=== PATIENT | female | born 1985 | race Caucasian/White ===

== ENCOUNTER → 2020-02-05 | Outpatient (CLI) | payer SELFPAY | LOC: M LABSMTC 16:12 | PROVIDERS: ATTEND Pediatrics | DX: Z20.828 Contact with and (suspected) exposure to other viral communicable diseases (principal) ==

== ENCOUNTER 2021-01-05 18:25 | Emergency (ER) | payer BC, OTHER ==
[~2021-01-05] VITALS: Ht 157.5 cm; Wt 86.4 kg
[2021-01-05 18:26] VITALS: BP 153/88
[2021-01-05] MEDS ORDERED: IBUP-1114 PO (18:54)
[2021-01-05] MEDS ORDERED: AUGMENTIN 875 MG TAB PO ONE (21:10)
[2021-01-05] MEDS ORDERED: AUGM875T28 PO (21:13)
--- OUTSIDE RECORDS SUMMARY | 2021-01-05 22:33 | CCD ---
Author Author [facility] Organization [facility] Address Unknown Phone Unavailable Care Team Providers Care Floor Installer Name Role Phone Maring, Johny PA Unavailable Unavailable Maring, Johny PA Unavailable Unavailable Maring, Johny PA Unavailable Unavailable Maring, Johny PA Unavailable Unavailable Maring, Johny PA Unavailable Unavailable Maring, Johny PA Unavailable Unavailable Maring, Johny PA Unavailable Unavailable Maring, Johny PA Unavailable Unavailable Maring, Johny PA Unavailable Unavailable Maring, Johny PA Unavailable Unavailable Maring, Johny PA Unavailable Unavailable Maring, Johny PA Unavailable Unavailable Maring, Johny PA Unavailable Unavailable Maring, Johny PA Unavailable Unavailable Maring, Johny PA Unavailable Unavailable Maring, Johny PA Unavailable Unavailable Re-disclosure Warning The records that you are about to access may contain information from federally-assisted alcohol or drug abuse programs. If such information is present, then the following federally mandated warning applies: This information has been disclosed to you from records protected by federal confidentiality rules (42 CFR part 2). The federal rules prohibit you from making any further disclosure of this information unless further disclosure is expressly permitted by the written consent of the person to whom it pertains or as otherwise permitted by 42 CFR part 2. A general authorization for the release of medical or other information is NOT sufficient for this purpose. The Federal rules restrict any use of the information to criminally investigate or prosecute any alcohol or drug abuse patient.The records that you are about to access may contain highly sensitive health information, the redisclosure of which is protected by Article 27-F of the [place] Public Health law. If you continue you may have access to information: Regarding HIV / AIDS; Provided by facilities licensed or operated by the [facility] Office of Mental Health; or Provided by the [facility] Office for People With Developmental Disabilities. If such information is present, then the following [facility] mandated warning applies: This information has been disclosed to you from confidential records which are protected by state law. State law prohibits you from making any further disclosure of this information without the specific written consent of the person to whom it pertains, or as otherwise permitted by law. Any unauthorized further disclosure in violation of state law may result in a fine or usp sentence or both. A general authorization for the release of medical or other information is NOT sufficient authorization for further disc losure. Encounters Encounter Providers Location Date Indications Data Source(s ) Outpatient Attender: Johny KIM 04/04/19 10:10:39 AM EST - 04/04/2020 12:03:45 PM EST DocuTap ([facility] ) Immunizations Vaccine Date Status Description Data Source(s) COVID-19 VACCINE Pfizer 12/18/2020 12:00:00 AM EDT completed [facility] Vaccine Series Complete: YESThis Data wa s Submitted to [facility] Via [employer]. COVID-19 VACCINE Pfizer 03/12/2020 12:00:00 AM EST completed [place] Vaccine Series Complete: YESThis Data wa s Submitted to [facility] Via [employer]. COVID-19 VACCINE Pfizer 02/20/2020 12:00:00 AM EST completed [facility] Vaccine Series Complete: NOThis Data was Submitted to [facility] Via [employer]. Medications No Information Insurance Providers Payer name Policy type / Coverage type Policy ID Covered constitution party ID Covered constitution party's relationship to lam Policy Lam Plan Information [facility] Preferred Provider Org. [id number] Self [id number] SELF PAY [facility] MED emp [id number] Employee [id number] [facility] [id number] SP [id number] DO NOT USE [id number] [facility] [id number] SELF PAY ONLY [id number] SP [id number] Problems, Conditions, and Diagnoses No Information Surgeries/Procedures No Information Results ID Date Data Source [id number] 02/05/2020 03:10:00 PM EST [facility] Name Value Range Interpretation Code Description Data Yana rce(s) Supporting Document(s) [facility] by [facility] and reported by [facility]. Procedure Social History No Information
--- OUTSIDE RECORDS SUMMARY | 2021-01-05 22:52 | CCD ---
Author Author [facility] Organization [facility] Address Unknown Phone Unavailable Care Team Providers Care Child Care Name Role Phone Maring, Johny PA Unavailable [...] is protected by Article 27-F of the [place] State Public Health law. If you continue you may have access to information: Regarding HIV / AIDS; Provided by facilities licensed or operated by the [facility] Office of Mental Health; or Provided by the [facility] Office for People With Developmental Disabilities. If such information is present, then the following [facility] mandated warning applies: This information has been [...] law may result in a fine or mcc sentence or both. A general authorization for the release of medical or other information is NOT sufficient authorization for further disc losure. Encounters Encounter Providers Location Date Indications Data Source(s ) Outpatient Attender: Johny KIM 04/04/19 10:10:39 AM EST - 04/04/2020 12:03:45 PM EST DocuTap ([facility] ) Immunizations Vaccine Date Status Description Data Source(s) COVID-19 VACCINE Pfizer 12/18/2020 12:00:00 AM EDT completed [place] Vaccine Series Complete: YESThis Data wa s Submitted to [facility] Via [employer]. COVID-19 VACCINE Pfizer 03/12/2020 12:00:00 AM EST completed [place] Vaccine Series Complete: YESThis Data wa s Submitted to [facility] Via [employer]. COVID-19 VACCINE Pfizer 02/20/2020 12:00:00 AM EST completed [place] Vaccine Series Complete: NOThis Data was Submitted to [facility] Via [employer]. Medications No Information Insurance Providers Payer name Policy type / Coverage type Policy ID Covered democrat ID Covered democrat's relationship to lam Policy Lam Plan Information [facility] Preferred Provider Org. [id number] Self [id number] SELF PAY [facility] MED emp [id number] Employee [id number] [facility] [id number] SP [id number] DO NOT USE [id number] [facility] [id number] SELF PAY ONLY [id number] SP [id number] Problems, Conditions, and Diagnoses No Information Surgeries/Procedures No Information Results ID Date Data Source [id number] 02/05/2020 03:10:00 PM EST [facility] Name Value Range Interpretation Code Description Data Yana rce(s) Supporting Document(s) SARS coronavirus 2 [facility] This lab was ordered by [facility] and reported by [facility]. Procedure Social History No Information
== END 2021-01-05 21:27 | disposition home or self-care (01) ==
LOC: M ED 18:25
DX: S81.831A Puncture wound without foreign body, right lower leg, initial encounter (principal); W55.01XA Bitten by cat, initial encounter; Y92.410 Unspecified street and highway as the place of occurrence of the external cause

== ENCOUNTER 2021-01-06 10:19 | Emergency (ER) | payer BC, OTHER ==
[~2021-01-06] VITALS: Ht 157.5 cm; Wt 86.4 kg
[~2021-01-06 10:19] MED LIST: AUGM875T28 PO; IBUP-1114 PO
--- OUTSIDE RECORDS SUMMARY | 2021-01-06 10:24 | CCD ---
Author Author [facility] Organization [facility] Address Unknown Phone Unavailable Care Team Providers Care Project Engineer Name Role Phone Maring, Johny PA Unavailable [...] by facilities licensed or operated by the [facility] Office of Mental Health; or Provided by the [facility] Office for People With Developmental Disabilities. If such information is present, then the following [facility] mandated warning applies: This information has been [...] law may result in a fine or chcf sentence or both. A general authorization for the release of medical or other information is NOT sufficient authorization for further disc losure. Encounters Encounter Providers Location Date Indications Data Source(s ) Outpatient Attender: Johny KIM 04/04/19 10:10:39 AM EST - 04/04/2020 12:03:45 PM EST DocuTap ([facility] ) Immunizations Vaccine Date Status Description Data Source(s) COVID-19 VACCINE Pfizer 12/18/2020 12:00:00 AM EDT completed [place] Vaccine Series Complete: YESThis Data wa s Submitted to [facility] Via [employer]. COVID-19 VACCINE Pfizer 03/12/2020 12:00:00 AM EST completed [place] Vaccine Series Complete: YESThis Data wa s Submitted to [facility] Via [employer]. COVID-19 VACCINE Pfizer 02/20/2020 12:00:00 AM EST completed [place] Vaccine Series Complete: NOThis Data was Submitted to [facility] Via [employer]. Medications No Information Insurance Providers Payer name Policy type / Coverage type Policy ID Covered libertarian ID Covered libertarian's relationship to lam Policy Lam Plan Information [facility] Preferred Provider Org. [id number] Self [id number] SELF PAY [facility] MED emp [id number] Employee [id number] [facility] [id number] SP [id number] DO NOT USE [id number] [facility] [id number] SELF PAY ONLY [id number] SP [id number] Problems, Conditions, and Diagnoses No Information Surgeries/Procedures No Information Results ID Date Data Source [id number] 02/05/2020 03:10:00 PM EST [facility] Name Value Range Interpretation Code Description Data Yana rce(s) Supporting Document(s) SARS coronavirus 2 [facility] This lab was ordered by [facility] and reported by [facility]. Procedure Social History No Information
--- OUTSIDE RECORDS SUMMARY | 2021-01-06 11:36 | CCD ---
Author Author [facility] Organization [facility] Address Unknown Phone Unavailable Care Team Providers Care Vice President Of Contracts Name Role Phone Maring, Johny PA Unavailable [...] is protected by Article 27-F of the [place] State Public Health law. If you continue you may have access to information: Regarding HIV / AIDS; Provided by facilities licensed or operated by the [facility] Office of Mental Health; or Provided by the [facility] Office for People With Developmental Disabilities. If such information is present, then the following [facility] mandated warning applies: This information has been [...] law may result in a fine or intermediate sentence or both. A general authorization for the release of medical or other information is NOT sufficient authorization for further disc losure. Encounters Encounter Providers Location Date Indications Data Source(s ) Outpatient Attender: Johny KIM 04/04/19 10:10:39 AM EST - 04/04/2020 12:03:45 PM EST DocuTap ([facility] ) Immunizations Vaccine Date Status Description Data Source(s) COVID-19 VACCINE Pfizer 12/18/2020 12:00:00 AM EDT completed [place]IS Vaccine Series Complete: YESThis Data wa s Submitted to [facility] Via [email or web address]. COVID-19 VACCINE Pfizer 03/12/2020 12:00:00 AM EST completed [place] Vaccine Series Complete: YESThis Data wa s Submitted to [facility] Via [email or web address]. COVID-19 VACCINE Pfizer 02/20/2020 12:00:00 AM EST completed [place] Vaccine Series Complete: NOThis Data was Submitted to [facility] Via [email or web address]. Medications No Information Insurance Providers Payer name Policy type / Coverage type Policy ID Covered constitution party ID Covered constitution party's relationship to lam Policy Lam Plan Information [facility] Preferred Provider Org. [id number] Self [id number] SELF PAY [facility] MED emp [id number] Employee [id number] [facility] [id number] SP [id number] DO NOT USE [id number] [facility] [id number] SELF PAY ONLY [id number] SP [id number] Problems, Conditions, and Diagnoses No Information Surgeries/Procedures No Information Results ID Date Data Source [id number] 02/05/2020 03:10:00 PM EST [facility] Name Value Range Interpretation Code Description Data Yana rce(s) Supporting Document(s) SARS coronavirus [facility] This lab was ordered by [facility] and reported by [facility]. Procedure Social History No Information
[2021-01-06] MEDS ORDERED: RABIES IMMUNE GLOBULIN 1500 INTERNATIONAL UNIT/5ML VIAL (90375) IM ONE ×2 (11:45→12:25)
[2021-01-06] MEDS ORDERED: RABIES VACCINE HUMAN 2.5 INTERNATIONAL UNITS/ML VIAL (90675) IM ONE (11:45)
[2021-01-06] MEDS ORDERED: RABIES IMMUNE GLOBULIN 300 INTERNATIONAL UNITS/1ML VIAL (90375) IM ONE (12:25)
[2021-01-06 13:38] VITALS: BP 129/89
== END 2021-01-06 13:41 | disposition home or self-care (01) ==
LOC: M ED 10:19
DX: Z20.3 Contact with and (suspected) exposure to rabies (principal); Z23 Encounter for immunization; S81.831A Puncture wound without foreign body, right lower leg, initial encounter; W55.01XA Bitten by cat, initial encounter; Y92.89 Other specified places as the place of occurrence of the external cause

== ENCOUNTER 2021-01-09 07:45 | Emergency (ER) | payer BC, OTHER ==
[~2021-01-09] VITALS: Ht 157.5 cm; Wt 95.3 kg
--- OUTSIDE RECORDS SUMMARY | 2021-01-09 07:49 | CCD ---
Author Author [facility] Organization [facility] Address Unknown Phone Unavailable Care Team Providers Care Team Manager Name Role Phone Maring, Johny PA Unavailable [...] is protected by Article 27-F of the [place] State Public Health law. If you continue you may have access to information: Regarding HIV / AIDS; Provided by facilities licensed or operated by the [facility] of Mental Health; or Provided by the [facility] Office for People With Developmental Disabilities. If such information is present, then the following [facility] mandated warning applies: This information has been [...] law may result in a fine or penitentiary sentence or both. A general authorization for the release of medical or other information is NOT sufficient authorization for further disc losure. Encounters Encounter Providers Location Date Indications Data Source(s ) Outpatient Attender: Johny KIM 04/04/19 10:10:39 AM EST - 04/04/2020 12:03:45 PM EST DocuTa ([facility] ) Immunizations Vaccine Date Status Description Data Source(s) COVID-19 VACCINE Pfizer 12/18/2020 12:00:00 AM EDT completed [place]IS Vaccine Series Complete: YESThis Data wa s Submitted to [facility] Via [employer]. COVID-19 VACCINE Pfizer 03/12/2020 12:00:00 AM EST completed [place] Vaccine Series Complete: YESThis Data wa s Submitted to [facility] Via [employer]. COVID-19 VACCINE Pfizer 02/20/2020 12:00:00 AM EST completed [place] Vaccine Series Complete: NOThis Data was Submitted to [facility] Via [employer]. Medications No Information Insurance Providers Payer name Policy type / Coverage type Policy ID Covered constitution party ID Covered constitution party's relationship to lam Policy Lam Plan Information [facility] Provider Org. [id number] Self [id number] SELF PAY [facility] emp [id number] Employee [id number] [employer] [place] P[employer] 302/307 [id number] SP [id number] [employer] DIV [id number] SP [id number] DO NOT USE [id number] [facility] [id number] [employer] [place] PPO 302/307 [id number] SP [id number] SELF PAY ONLY [id number] SP [id number] [facility] [id number] Problems, Conditions, and Diagnoses No Information Surgeries/Procedures No Information Results ID Date Data Source [id number] 02/05/2020 03:10:00 PM EST [place] Name Value Range Interpretation Code Description Data Yana rce(s) Supporting Document(s) SARS coronavirus 2 RNA [facility] This lab was ordered by [facility] and reported by [facility]. Procedure Social History No Information
[2021-01-09] MEDS ORDERED: RABIES VACCINE HUMAN 2.5 INTERNATIONAL UNITS/ML VIAL (90675) IM ONE (08:30)
--- OUTSIDE RECORDS SUMMARY | 2021-01-09 09:29 | CCD ---
Author Author [facility] Organization [facility] Address Unknown Phone Unavailable Care Team Providers Care Steam Fitter Name Role Phone Maring, Johny PA Unavailable Unavailable Maring, Johny PA Unavailable Unavailable Maring, Johny PA Unavailable Unavailable Maring, Johny PA Unavailable Unavailable Maring, Johny PA Unavailable Unavailable Maring, Johny PA Unavailable Unavailable Maring, Johny PA Unavailable Unavailable Maring, Johny PA Unavailable Unavailable Maring, Johny PA Unavailable Unavailable Maring, Jhony PA Unavailable Unavailable Maring, Johny PA Unavailable [...] is protected by Article 27-F of the [place] State Public Health law. If you continue you may have access to information: Regarding HIV / AIDS; Provided by facilities licensed or operated by the [facility] Office of Mental Health; or Provided by the [facility] Office for People With Developmental Disabilities. If such information is present, then the following [facility] mandated warning applies: This information [...] EST - 04/04/2020 12:03:45 PM EST DocuTa ([facility] ) Immunizations Vaccine Date Status Description Data Source(s) COVID-19 VACCINE Pfizer 12/18/2020 12:00:00 AM EDT completed [place] Vaccine Series Complete: YESThis Data wa s Submitted to [facility] Via [employer]. COVID-19 VACCINE Pfizer 03/12/2020 12:00:00 AM EST completed [place] Vaccine Series Complete: YESThis Data wa s Submitted to [facility] Via [employer]. COVID-19 VACCINE Pfizer 02/20/2020 12:00:00 AM EST completed [place] Vaccine Series Complete: NOThis Data was Submitted to [facility] Via [employer]. Medications No Information Insurance Providers Payer name Policy type / Coverage type Policy ID Covered democrat ID Covered democrat's relationship to lam Policy Lam Plan Information [facility] Provider Org. [id number] Self [id number] SELF PAY [facility] emp [id number] Employee [id number] [employer] [place] PPO 302/307 [id number] SP [id number] [employer] DIV [id number] SP [id number] DO NOT USE [id number] [facility] [id number] [employer] [place] PPO 302/307 [id number] SP [id number] SELF PAY ONLY [id number] SP [id number] [facility] [id number] Problems, Conditions, and Diagnoses No Information Surgeries/Procedures No Information Results ID Date Data Source [id number] 02/05/2020 03:10:00 PM EST [facility] Name Value Range Interpretation Code Description Data Yana rce(s) Supporting Document(s) SARS coronavirus 2 RNA [facility] This lab was ordered by [facility] and reported by [facility]. Procedure Social History No Information
[2021-01-09 09:34] VITALS: BP 125/83
== END 2021-01-09 09:36 | disposition home or self-care (01) ==
LOC: M ED 07:45
DX: Z23 Encounter for immunization (principal); Z20.3 Contact with and (suspected) exposure to rabies; S81.851D Open bite, right lower leg, subsequent encounter; W55.01XD Bitten by cat, subsequent encounter; Y92.9 Unspecified place or not applicable; Y93.9 Activity, unspecified; Y99.9 Unspecified external cause status

== ENCOUNTER 2021-01-13 06:01 | Emergency (ER) | payer BC, OTHER ==
[~2021-01-13] VITALS: Ht 157.5 cm; Wt 98.0 kg
[2021-01-13 06:02] VITALS: BP 134/85
--- OUTSIDE RECORDS SUMMARY | 2021-01-13 06:11 | CCD ---
Author Author [facility] Organization [facility] Address Unknown Phone Unavailable Care Team Providers Care Rug Touch Up Painter Name Role Phone Maring, Johny PA Unavailable [...] is protected by Article 27-F of the [place] State Public Health law. If you continue you may have access to information: Regarding HIV / AIDS; Provided by facilities licensed or operated by the [facility] Office of Mental Health; or Provided by the [facility] Office for People With Developmental Disabilities. If such information is present, then the following [facility] mandated warning applies: This information has [...] law may result in a fine or half-way sentence or both. A general authorization for the release of medical or other information is NOT sufficient authorization for further disc losure. Encounters Encounter Providers Location Date Indications Data Source(s ) Outpatient Attender: Johny KIM 04/04/19 10:10:39 AM EST - 04/04/2020 12:03:45 PM EST DocuTa ([facility] ) Immunizations Vaccine Date Status Description Data Source(s) COVID-19 VACCINE Pfizer 12/18/2020 12:00:00 AM EDT completed [place] Vaccine Series Complete: YESThis Data wa s Submitted to [facility] Via [employer]. COVID-19 VACCINE Pfizer 03/12/2020 12:00:00 AM EST completed [place] Vaccine Series Complete: YESThis Data wa s Submitted to [facility] Via [employer]. COVID-19 VACCINE Pfizer 02/20/2020 12:00:00 AM EST completed [place] Vaccine Series Complete: NOThis Data was Submitted to [facility] Via [employer]. Medications No Information Insurance Providers Payer name Policy type / Coverage type Policy ID Covered constitution party ID Covered constitution party's relationship to lam Policy Lam Plan Information [facility] Provider Org. [id number] Self [id number] SELF PAY [facility] emp [id number] Employee [id number] [employer] [place] PPO 302/307 [id number] SP [id number] [employer] DIV [id number] SP [id number] DO NOT USE [id number] [facility] [id number] [employer] [place] PPO 302/307 [id number] SP [id number] SELF PAY ONLY [id number] SP [id number] [facility] [id number] Problems, Conditions, and Diagnoses No Information Surgeries/Procedures No Information Results ID Date Data Source [id number] 02/05/2020 03:10:00 PM EST [facility] Name Value Range Interpretation Code Description Data Yana rce(s) Supporting Document(s) SARS coronavirus 2 RNA [facility] This lab was ordered by [facility] and reported by [facility]. Procedure Social History No Information
--- OUTSIDE RECORDS SUMMARY | 2021-01-13 07:50 | CCD ---
Author Author [facility] Organization [facility] Address Unknown Phone Unavailable Care Team Providers Care Broomcorn Scraper Name Role Phone Maring, Johny PA Unavailable [...] by facilities licensed or operated by the [facility] Office of Mental Health; or Provided by the [facility] Office for People With Developmental Disabilities. If such information is present, then the following [facility] mandated warning applies: This information has [...] law may result in a fine or residential sentence or both. A general authorization for the release of medical or other information is NOT sufficient authorization for further disc losure. Encounters Encounter Providers Location Date Indications Data Source(s ) Outpatient Attender: Johny KIM 04/04/19 10:10:39 AM EST - 04/04/2020 12:03:45 PM EST DocuTa ([facility] ) Immunizations Vaccine Date Status Description Data Source(s) COVID-19 VACCINE Pfizer 12/18/2020 12:00:00 AM EDT completed [facility] Vaccine Series Complete: YESThis Data wa s Submitted to [facility] Via [employer]. COVID-19 VACCINE Pfizer 03/12/2020 12:00:00 AM EST completed [facility] Vaccine Series Complete: YESThis Data wa s Submitted to [facility] Via [employer]. COVID-19 VACCINE Pfizer 02/20/2020 12:00:00 AM EST completed [facility] Vaccine Series Complete: NOThis Data was Submitted to [facility] Via [employer]. Medications No Information Insurance Providers Payer name Policy type / Coverage type Policy ID Covered republican ID Covered republican's relationship to lam Policy Lam Plan Information [facility] Provider Org. [id number] Self [id number] SELF PAY [facility] emp [id number] Employee [id number] [employer] [place] 302/307 [id number] SP [id number] [employer] DIV [id number] SP [id number] DO NOT USE [id number] [facility] [id number] [employer] [place] P[place] 302/[id number] SP [id number] SELF PAY ONLY [id number] SP [id number] [facility] [id number] 18 [id number] Problems, Conditions, and Diagnoses No Information Surgeries/Procedures No Information Results ID Date Data Source [id number] 02/05/2020 03:10:00 PM EST [facility] Name Value Range Interpretation Code Description Data Yana rce(s) Supporting Document(s) SARS coronavirus 2 RNA [facility] This lab was ordered by [facility] and reported by [facility]. Procedure Social History No Information
[2021-01-13] MEDS ORDERED: RABIES VACCINE HUMAN 2.5 INTERNATIONAL UNITS/ML VIAL (90675) IM ONE (08:05)
== END 2021-01-13 08:27 | disposition home or self-care (01) ==
LOC: M ED 06:01
DX: Z23 Encounter for immunization (principal); Z20.3 Contact with and (suspected) exposure to rabies

== ENCOUNTER 2021-01-27 06:29 | Emergency (ER) | payer BC, OTHER ==
[~2021-01-27] VITALS: Ht 157.5 cm; Wt 95.5 kg
[2021-01-27 06:29] VITALS: BP 135/85
[2021-01-27] MEDS ORDERED: RABIES VACCINE HUMAN 2.5 INTERNATIONAL UNITS/ML VIAL (90675) IM ONE (07:35)
== END 2021-01-27 08:05 | disposition home or self-care (01) ==
LOC: M ED 06:29
DX: Z23 Encounter for immunization (principal); Z20.3 Contact with and (suspected) exposure to rabies; Z97.5 Presence of (intrauterine) contraceptive device

== ENCOUNTER → 2021-02-28 | Outpatient (REF) | LOC: M EMP 15:40 | PROVIDERS: ATTEND Family Medicine | DX: Z11.52 Encounter for screening for COVID-19 (principal); Z20.822 Contact with and (suspected) exposure to COVID-19 ==

== ENCOUNTER → 2021-12-10 | Outpatient (REF) | LOC: M LABSMTC 09:20 | PROVIDERS: ATTEND Family Medicine | DX: Z20.822 Contact with and (suspected) exposure to COVID-19 (principal) ==

== ENCOUNTER → 2022-04-24 | Outpatient (REF) | LOC: M LABSMTC 09:52 | PROVIDERS: ATTEND Family Medicine | DX: Z11.52 Encounter for screening for COVID-19 (principal) ==

== ENCOUNTER → 2022-08-14 | Outpatient (REF) | LOC: M EMP 08:47 | PROVIDERS: ATTEND Family Medicine | DX: Z11.52 Encounter for screening for COVID-19 (principal) ==

== ENCOUNTER → 2024-01-22 | Outpatient (REF) | LOC: M LAB 10:02 | PROVIDERS: ATTEND Family Medicine | DX: Z02.1 Encounter for pre-employment examination (principal) ==

== ENCOUNTER 2024-08-30 20:53 | Emergency (ER) | payer BC, OTHER ==
[~2024-08-30] VITALS: Ht 152.4 cm; Wt 52.3 kg
[2024-08-30] MEDS: METHOCARBAMOL 1,000 MG/10 ML VIAL IV ONE (22:33)
[2024-08-30] MEDS: KETOROLAC 30 MG/ML 1 ML VIAL IV ONE (22:34)
[2024-08-30] MEDS ORDERED: IBUP80TA PO (23:59)
[2024-08-30] MEDS ORDERED: METH-1165 PO (23:59)
[2024-08-31 00:25] VITALS: BP 133/85; TEMP 98.6; O2SAT 98
== END 2024-08-31 00:27 | disposition home or self-care (01) ==
LOC: M ED 20:53
DX: S39.012A Strain of muscle, fascia and tendon of lower back, initial encounter (principal); X50.0XXA Overexertion from strenuous movement or load, initial encounter; Y92.9 Unspecified place or not applicable; Y93.89 Activity, other specified; Y99.9 Unspecified external cause status; Z79.1 Long term (current) use of non-steroidal anti-inflammatories (NSAID); Z79.899 Other long term (current) drug therapy
CPT/HCPCS: 96374; 96375; 99284; J1885; J2800